=== PATIENT | male | born 1960 | race Caucasian/White ===

== ENCOUNTER 2017-07-17 06:52 | Day surgery (SDC) | payer BC ==
[~2017-07-17] VITALS: Ht 175.3 cm; Wt 79.8 kg
[2017-07-17] MEDS ORDERED: PROPOFOL 20 ML IV ONE (07:24)
[2017-07-17] MEDS ORDERED: SUCCINYLCHOLINE 200 MG/10 ML VIAL. ONE (07:24)
[2017-07-17] MEDS ORDERED: ROCURONIUM 100 MG/10 ML VIAL. ONE (07:24)
[2017-07-17] MEDS ORDERED: fentaNYL PF VIAL 100 MCG/2 ML VIAL ONE ×4 (07:24→09:47)
[2017-07-17] MEDS ORDERED: LIDOCAINE 2% PF Vial for OR 5 ML VIAL. ONE (07:24)
[2017-07-17] MEDS ORDERED: AMOX1TAB61 PO (07:28)
[2017-07-17] MEDS ORDERED: ACET325T9 PO (07:29)
[2017-07-17] MEDS ORDERED: BUPIVACAINE-EPI 0.25%-1:200000 MPF 30 ML VIAL. ONE (07:46)
[2017-07-17] MEDS ORDERED: IV RINGERS,LACTATED 1000ML 1,000 ML IV SCH ×2 (08:00→09:30)
[2017-07-17] MEDS ORDERED: SEVOFLURANE 31 TO 60 MINUTES. IH ONE (08:32)
[2017-07-17] MEDS ORDERED: DEXAMETHASONE SOD PHOS 20 MG/5 ML VIAL. ONE (08:32)
[2017-07-17] MEDS ORDERED: GLYCOPYRROLATE 1 MG/5 ML VIAL. ONE (08:35)
[2017-07-17] MEDS ORDERED: NEOSTIGMINE 10 MG/10 ML VIAL. ONE (08:35)
[2017-07-17] MEDS ORDERED: ONDANSETRON PF 4 MG/2 ML VIAL. ONE (08:36)
--- NOTE | 2017-07-17 09:21 | PDOC4 ---
Operative Note Operative Note Date: 07/17/2017 Preoperative diagnosis: Recurrent right inguinal hernia Postoperative diagnosis: Same Procedure: Robotic-assisted laparoscopic right inguinal hernia repair with mesh Surgeon: Talha Specimen: None Dictation: Patient is a 56-year-old male who has complaints of a painful bulge in the right groin where he had previously had a inguinal hernia repair when he was infant. Procedure of robotic-assisted laparoscopic right inguinal hernia repair with mesh was explained to the patient in detail all risks benefits were also discussed including bleeding infection injury to intra-abdominal contents possibly necessitating further or open operations. The patient seemed understanding gave both verbal and written consent to have the procedure performed. Patient was taken to the operating room placed in the supine position general anesthesia was initiated once patient was asleep and intubated he was then placed in low lithotomy and his abdomen and groins were prepped and draped in usual sterile fashion using ChloraPrep. An area just above the umbilicus was injected with quarter percent Marcaine with epinephrine and an incision was made with 11 blade scalpel and a varies needle was placed within the abdomen creating a pneumoperitoneum. Da Cj camera port was then placed and camera was placed within the abdomen abdomen was inspected was noted that he had a hernia in the right groin otherwise normal inspection of the abdomen. At this time 2 more ports were placed under direct visualization one in the left mid abdomen and one in the mid right abdomen. The da Cj robot was brought in and docked to all port sites. Grasper and Endo Parth dissectors were placed at this point surgeon went to the robotic console. Using a grasper the peritoneum was grasped over the hernia defect this was incised with Endo Parth scissors and a window was propagated inferiorly and superiorly and all hernia contents were reduced. Pro feeder operator mesh was then placed on the floor of the pelvis covering the hernia defect. Peritoneum was then closed with running 2-0V lock suture. The instruments removed the da Cj robot was undocked and removed from the patient all ports removed and the incisions were closed with 4- 0 subcuticular Monocryl Mastisol Steri-Strips and island dressings were applied. Patient was awakened and asked made in the operating room taken to recovery in stable condition all sponge instrument and needle counts listed as correct estimated blood loss 10 mL. EDWIN BHATIA MD Jul 17, 2017 09:21
--- NOTE | 2017-07-17 09:22 | DISCH ---
DISCHARGE INSTRUCTIONS Condition on Discharge Condition on Discharge: Stable Activity After Discharge Activity Instructions for Disc: Avoid exertion Other activity instructions: No lifting >20lbs for 2 weeks Diet after Discharge Diet after Discharge: Regular Wound Incision Care Other wound/incision instructi: May shower in 24 hours Contacting the after DC Call your doctor for: If your condition worsens Follow-Up Follow up with: Dr Bhatia in 2 weeks EDWIN BHATIA MD Jul 17, 2017 09:21
[2017-07-17] MEDS: fentaNYL PF VIAL 100 MCG/2 ML VIAL IV PRN ×4 (09:28→10:05)
[2017-07-17] MEDS ORDERED: PROCHLORPERAZINE 10 MG/2 ML VIAL. ONE (09:29)
[2017-07-17] MEDS ORDERED: fentaNYL PF VIAL 100 MCG/2 ML VIAL IV PRN (09:30)
[2017-07-17] MEDS ORDERED: PROCHLORPERAZINE 10 MG/2 ML VIAL. IV PRN (09:30)
[2017-07-17] MEDS ORDERED: HYDROmorphone 2 MG/ML VIAL IV PRN (09:30)
[2017-07-17] MEDS ORDERED: LIDOCAINE 1% 1 ML SYRINGE. ID PRN (09:30)
[2017-07-17] MEDS ORDERED: ONDANSETRON PF 4 MG/2 ML VIAL. IV PRN (09:30)
[2017-07-17] MEDS ORDERED: MORPHINE SULFATE 2 MG/ML DISP.SYRIN. IV PRN (09:30)
[2017-07-17] MEDS ORDERED: OXYC-323 PO (09:35)
[2017-07-17] MEDS ORDERED: oxyCODONE/APAP 5/325 1 TAB TABLET PO ONE (09:45)
[2017-07-17] MEDS ORDERED: MORPHINE SULFATE 2 MG/ML DISP.SYRIN. ONE (09:47)
[2017-07-17 10:55] VITALS: BP 139/83
== END 2017-07-17 11:13 | disposition home or self-care (01) ==
LOC: SURG 06:52
PROVIDERS: ATTEND Surgery
DX: K40.91 Unilateral inguinal hernia, without obstruction or gangrene, recurrent (principal); F17.200 Nicotine dependence, unspecified, uncomplicated; Z86.69 Personal history of other diseases of the nervous system and sense organs; Z72.89 Other problems related to lifestyle; Z72.0 Tobacco use; Z98.890 Other specified postprocedural states
CPT/HCPCS: 49651; C1781; J0330; J0690; J0780; J1100; J2270; J2405; J2704; J2710; J3010; J3490; J2001

== ENCOUNTER 2017-07-22 21:03 | Emergency (ER) | payer BC ==
[~2017-07-22] VITALS: Ht 175.3 cm; Wt 78.9 kg
[~2017-07-22 21:03] MED LIST: ACET325T9 PO; AMOX1TAB61 PO; OXYC-323 PO
[2017-07-22 21:46] LABS: BASO % 0 % (0-3); EOS % 3 % (0-3); HEMATOCRIT 43.9 % (39.0-53.0); HEMOGLOBIN 15.1 g/dL (13.0-17.5); LYMPH # 1.7 x10^3/uL (1.0-4.8); LYMPH % 16 % (24-48); MEAN CORPUSCULAR HEMOGLOBIN 30 pg (25-35); MEAN CORPUSCULAR HGB CONC 34 g/dL (31-37); MEAN CORPUSCULAR VOLUME 87 fL (79-100); MONO % 8 % (0-9); NEUT % 72 % (31-73); PLATELET COUNT 244 x10^3/uL (140-400); RED BLOOD COUNT 5.03 x10^6/uL (4.30-5.70); RED CELL DISTRIBUTION WIDTH 13.5 % (11.5-14.5); WHITE BLOOD COUNT 10.5 x10^3/uL (4.0-11.0)
[2017-07-22 21:56] LABS: CREATININE 1.3 mg/dL (0.7-1.3); GFR 57.5; POTASSIUM 3.8 mmol/L (3.5-5.1)
[2017-07-22] MEDS ORDERED: IV NORMAL SALINE 1000ML BAG 1,000 ML IV ONE (22:00)
[2017-07-22] MEDS ORDERED: ASPIRIN CHEWABLE 81 MG TABLET. PO ONE (22:00)
--- NOTE | 2017-07-22 22:00 | PHYS DOC ---
Past Medical History Past Medical History: Other Additional Past Medical Histor: HERNIA Past Surgical History: Other Additional Past Surgical Histo: HERNIA Alcohol Use: Occasionally Drug Use: None Adult General Chief Complaint Chief Complaint: CHEST PAIN HPI HPI 86-year-old male with no history of coronary artery disease diagnosed with pulmonary embolism 2 years ago now presents to the emergency department complaining of pleuritic pain in the left chest. Patient had a right inguinal hernia surgery 5 days ago. He's been at home convalescing with very mild and improving abdominal pain. Today he Car to do an errand and felt a sudden onset of sharp left-sided chest pain that was worse with deep inspiration. Patient is not currently anticoagulated. He does not have a fever chills sweats or shaking chills and is not feeling he's had an infectious prodrome. He is not having exertional chest pain nor nausea vomiting or diaphoresis Review of Systems Review of Systems Constitutional: Denies fever or chills [] Eyes: Denies change in visual acuity, redness, or eye pain [] HENT: Denies nasal congestion or sore throat [] Respiratory: Denies cough or shortness of breath [] Cardiovascular: No additional information not addressed in HPI [] GI: Denies abdominal pain, nausea, vomiting, bloody stools or diarrhea [] : Denies dysuria or hematuria [] Musculoskeletal: Denies back pain or joint pain [] Integument: Denies rash or skin lesions [] Neurologic: Denies headache, focal weakness or sensory changes [] Endocrine: Denies polyuria or polydipsia [] Current Medications Current Medications Current Medications Medications (Trade) Dose Ordered Sig/[facility] Start Time Stop Time Status Last Admin Dose Admin Aspirin (Children'S Aspirin) 324 mg 1X ONCE 07/22/17 22:00 07/22/17 22:01 DC 07/22/17 22:12 324 MG Info (Do NOT chart on this entry -- for MONITORING) 1 each PRN DAILY PRN 07/22/17 22:15 07/24/17 22:14 Iohexol (Omnipaque 300 Mg/ml) 75 ml STK-MED ONCE 07/22/17 22:13 07/22/17 22:14 DC Sodium Chloride 1,000 ml @ 125 mls/hr 1X ONCE 07/22/17 22:00 07/23/17 05:59 07/22/17 22:13 125 MLS/HR Allergies Allergies Allergies Coded Allergies Type Severity Reaction Last Updated Verified No Known Drug Allergies 07/17/17 No Physical Exam Physical Exam Constitutional: Well developed, well nourished, no acute distress, non-toxic appearance. [] HENT: Normocephalic, atraumatic, bilateral external ears normal, oropharynx moist, no oral exudates, nose normal. [] Eyes: PERRLA, EOMI, conjunctiva normal, no discharge. [] Neck: Normal range of motion, no tenderness, supple, no stridor. [] Cardiovascular:Heart rate regular rhythm, no murmur [] Lungs & Thorax: Bilateral breath sounds clear to auscultation [] Abdomen: Bowel sounds normal, soft, no tenderness, no masses, no pulsatile masses. [] Skin: Warm, dry, no erythema, no rash. [] Back: No tenderness, no CVA tenderness. [] Extremities: No tenderness, no cyanosis, no clubbing, ROM intact, no edema. [] Neurologic: Alert and oriented X 3, normal motor function, normal sensory function, no focal deficits noted. [] Psychologic: Affect normal, judgement normal, mood normal. [] Current Patient Data Vital Signs Vital Signs Date Time Temp Pulse Resp B/P (MAP) Pulse Ox O2 Delivery O2 Flow Rate FiO2 07/22/17 22:00 83 18 147/96 (113) 94 Room Air Lab Values Laboratory Tests Test 07/22/17 21:10 White Blood Count 10.5 x10^3/uL (4.0-11.0) Red Blood Count 5.03 x10^6/uL (4.30-5.70) Hemoglobin 15.1 g/dL (13.0-17.5) Hematocrit 43.9 % (39.0-53.0) Mean Corpuscular Volume 87 fL (79-100) Mean Corpuscular Hemoglobin 30 pg (25-35) Mean Corpuscular Hemoglobin Concent 34 g/dL (31-37) Red Cell Distribution Width 13.5 % (11.5-14.5) Platelet Count 244 x10^3/uL (140-400) Neutrophils (%) (Auto) 72 % (31-73) Lymphocytes (%) (Auto) 16 % (24-48) L Monocytes (%) (Auto) 8 % (0-9) Eosinophils (%) (Auto) 3 % (0-3) Basophils (%) (Auto) 0 % (0-3) Neutrophils # (Auto) 7.5 x10^3uL (1.8-7.7) Lymphocytes # (Auto) 1.7 x10^3/uL (1.0-4.8) Monocytes # (Auto) 0.8 x10^3/uL (0.0-1.1) Eosinophils # (Auto) 0.4 x10^3/uL (0.0-0.7) Basophils # (Auto) 0.0 x10^3/uL (0.0-0.2) Sodium Level 139 mmol/L (136-145) Potassium Level 3.8 mmol/L (3.5-5.1) Chloride Level 102 mmol/L (98-107) Carbon Dioxide Level 27 mmol/L (21-32) Anion Gap 10 (6-14) Blood Urea Nitrogen 26 mg/dL (8-26) Creatinine 1.3 mg/dL (0.7-1.3) Estimated GFR (Cockcroft-Gault) 57.5 BUN/Creatinine Ratio 20 (6-20) Glucose Level 120 mg/dL (70-99) H Calcium Level 9.0 mg/dL (8.5-10.1) Total Bilirubin 0.5 mg/dL (0.2-1.0) Aspartate Amino Transferase (AST) 18 U/L (15-37) Alanine Aminotransferase (ALT) 27 U/L (16-63) Alkaline Phosphatase 79 U/L (46-116) Troponin I Quantitative < 0.017 ng/mL (0.000-0.055) Total Protein 7.8 g/dL (6.4-8.2) Albumin 3.8 g/dL (3.4-5.0) Albumin/Globulin Ratio 1.0 (1.0-1.7) Laboratory Tests 07/22/17 21:10 Laboratory Tests 07/22/17 21:10 EKG EKG Normal sinus rhythm at 91 normal axis no STEMI interpreted by [facility] Radiology/Procedures Radiology/Procedures Chest x-ray hyperinflation chronic changes no acute disease[] Course & Med Decision Making Course & Med Decision Making Pertinent Labs and Imaging studies reviewed. (See chart for details) Signs and symptoms consistent with possible pulmonary embolism in a patient with a history of the same. When previously diagnosed 2 years ago patient's only risk factor was sitting in a chair at his job during his workday. He had no identified predisposition to hypercoagulability. Patient is no longer anticoagulated signs and symptoms today are suggestive of pulmonary embolism versus pleuritic versus chest wall pain. Well-appearing and hemodynamically stable with a normal respiratory rate and pulse ox at rest. Heart rate in 90s. Full workup pending reading CTA of the chest Since stable on reevaluation. CTA of the chest negative for infiltrate or pulmonary embolism. Incidental finding of renal cyst. Patient is aware and will follow-up with his primary care doctor to discuss. Labs are benign. Patient with no evidence of acute coronary syndrome nor infectious prodrome. No further workup or treatment indicated at this time. Patient agrees with outpatient follow-up and strict return precautions given Dragon Disclaimer Dragon Disclaimer This electronic medical record was generated, in whole or in part, using a voice recognition dictation system. Departure Departure Impression: Primary Impression: Pleuritic chest pain Disposition: 01 HOME, SELF-CARE Referrals: ZAFAR RIVERA (PCP) Patient Instructions: Pleurisy Additional Instructions: You have been experiencing pleuritic chest pain tonight. Sometimes this can be associated with a blood clot in the lung however the CT angiogram of your chest showed no clot. U do not have pneumonia either. The remainder of your workup is benign tonight. No further workup or treatment is indicated at this time. If you have episodic pleuritic pain take ibuprofen every 6 hours and Tylenol as needed. Follow-up with your doctor in the morning and return immediately for new severe or worsening symptoms DELLA PACHECO MD Jul 22, 2017 22:00
[2017-07-22 22:02] LABS: ALBUMIN 3.8 g/dL (3.4-5.0); TOTAL BILIRUBIN 0.5 mg/dL (0.2-1.0); TOTAL PROTEIN 7.8 g/dL (6.4-8.2)
[2017-07-22] MEDS ORDERED: IOHEXOL 300 MG/ML 75 ML VIAL ONE (22:13)
[2017-07-22] MEDS ORDERED: CONTRAST GIVEN MC PRN (22:15)
--- NOTE | 2017-07-22 22:29 | RAD ---
Chest CTA History: Sudden onset chest pain today, recent hernia surgery, previous pulmonary embolism Technique: After bolus of intravenous contrast, CT imaging was performed of the chest. Multiplanar reconstruction images to include MIP reconstruction images are submitted. Exposure: One or more of the following individualized dose reduction techniques were utilized for this examination: 1. Automated exposure control 2. Adjustment of the mA and/or kV according to patient size 3. Use of iterative reconstruction technique. Contrast: 60 cc Omnipaque 300 Comparison: None Findings: No pulmonary embolism is identified. There is no infiltrate, pleural effusion, pneumothorax, abnormal pericardial fluid. Minimal density in the posterior right distal trachea just proximal to the mainstem bronchus is more likely due to mucus. Thoracic aortic caliber is within normal limits without intraluminal flap. There are a few hypodense foci of the visualized left kidney, overall density characteristics suggestive of cysts. Impression: 1. No pulmonary embolism is identified. 2. Hypodense foci of the left kidney are most likely due to cysts, not fully included. Electronically signed by: Nicolas Tucker MD (07/22/2017 10:26 PM) [facility]
[2017-07-22] MEDS ORDERED: IOHEXOL 300 MG/ML 75 ML VIAL IV ONE (22:30)
[2017-07-22 22:45] VITALS: BP 159/87
--- NOTE | 2017-07-23 06:17 | EKG ---
[facility] [address] [place] [address] Test Date: 2017-07-22 Test Time: 21:11:11 Pat Name: TRICE PARKER Department: Room: Gender: M [employer]: : 1960 Requested By: DELLA PACHECO Order Number: [id number] Reading MD: Denise Roberto Measurements Intervals [place] Rate: 91 P: 49 MS: 124 QRS: 68 QRSD: 92 T: 31 QT: 348 QTc: 430 Interpretive Statements SINUS RHYTHM QRS(T) CONTOUR ABNORMALITY CONSIDER INFERIOR MYOCARDIAL DAMAGE POSSIBLY ABNORMAL ECG Electronically Signed On 07-28-2017 10:43:24 CDT by Denise Roberto
--- NOTE | 2017-07-23 07:43 | RAD ---
Portable chest, 07/22/2017: History: Shortness of breath, left-sided chest pain The heart size and pulmonary vascularity are normal. There is mild tortuosity of the thoracic aorta. No pulmonary infiltrates are seen. There is no evidence of pleural fluid. IMPRESSION: No acute cardiopulmonary abnormality is detected.
== END 2017-07-23 00:15 | disposition home or self-care (01) ==
LOC: ER 21:03
DX: R07.81 Pleurodynia (principal); Z79.82 Long term (current) use of aspirin; Z86.711 Personal history of pulmonary embolism
CPT/HCPCS: 36415; 71010; 71275; 80053; 84484; 85025; 93005; 96360; 96361; 99285; J7030; Q9967